=== PATIENT | male | born 1975 | race African-American/Black ===

== ENCOUNTER 2017-07-01 15:37 | Emergency (ER) | payer SELFPAY ==
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
--- NOTE | 2017-07-02 10:38 | CR ---
EXAM DATE: 07/01/17 PATIENT'S AGE: 41 Patient: AKASH BENITO Facility: [place], [place] Site . Site : [id number] Study: XRay Chest [id number]/[id number] 4:40:56 PM Ordering Physician: Soraya Montiel Final Report: INDICATION: Pain, shortness of breath for 2 days TECHNIQUE: Chest 2 views. COMPARISON: None FINDINGS: Cardiovascular and mediastinum: Heart size and vasculature are normal in caliber and appearance. Mediastinum is within normal limits. Lungs and pleural spaces: Lungs are clear. No sign of infiltrate or mass. No sign of pleural effusion. No pneumothorax. Bones and soft tissues: No significant findings. IMPRESSION: No sign of acute disease. Dictated by Christa Hammond MD @ Jul 01 2017 4:54PM (Electronic Signature) Report Signed by Proxy. ANITA
== END 2017-07-01 17:24 | disposition home or self-care (01) ==
LOC: MW.ED 15:37
DX: M62.838 Other muscle spasm (principal)
CPT/HCPCS: 71020; 71020-26; 93005; 99282; 99283-25

== ENCOUNTER 2019-01-16 14:58 | Emergency (ER) | payer BC, OTHER ==
--- NOTE | 2019-01-16 15:21 | EDM.PDOC ---
ED HPI GENERAL MEDICAL PROBLEM - General Chief Complaint: Skin Complaint Stated Complaint: NECK PAIN Time Seen by Provider: 01/16/19 15:19 Source of Information: Reports: Patient - History of Present Illness INITIAL COMMENTS - FREE TEXT/NARRATIVE: HISTORY AND PHYSICAL: History of present illness: [Patient presents with a couple of "bumps"in the back of his neck which indeed he does he has 2 small lesions consistent with ingrown hairs which are small subcentimeter lesions no surrounding redness or induration however lesions himself aren't inflamed I did produce a small amount of fluid from one which was more serous in nature I did culture this no fever nausea vomiting chills sweats He has had another lesion on his calfWhich had drained on its own and is in the stage of healing this is approximately 2 weeks old. No surrounding cellulitis ] Review of systems: As per history of present illness and below otherwise all systems reviewed and negative. Past medical history: As per history of present illness and as reviewed below otherwise noncontributory. Surgical history: As per history of present illness and as reviewed below otherwise noncontributory. Social history: No reported history of drug or alcohol abuse. Family history: As per history of present illness and as reviewed below otherwise noncontributory. Physical exam: HEENT: Atraumatic, normocephalic, pupils reactive, negative for conjunctival pallor or scleral icterus, mucous membranes moist, throat clear, neck supple, nontender, trachea midline. Lungs: Clear to auscultation, breath sounds equal bilaterally, chest nontender. Heart: S1S2, regular, negative for clicks, rubs, or JVD. Abdomen: Soft, nondistended, nontender. Negative for masses or hepatosplenomegaly. Negative for costovertebral tenderness. Pelvis: Stable nontender. Genitourinary: Deferred. Rectal: Deferred. Extremities: Atraumatic, negative for cords or calf pain. Neurovascular unremarkable. Neuro: Awake, alert, oriented. Cranial nerves II through XII unremarkable. Cerebellum unremarkable. Motor and sensory unremarkable throughout. Exam nonfocal. Diagnostics: [Wound culture ] Therapeutics: [Bactrim ] Impression: Folliculitis defintive disposition and diagnosis as appropriate pending reevaluation and review of above. Bump to Back of Neck Pain Score (Numeric/FACES): 10 - Related Data Allergies Allergy/AdvReac Type Severity Reaction Status Date / Time No Known Allergies Allergy Verified 01/16/19 15:07 Home Meds: Home Meds . [No Known Home Meds] 07/01/17 [History] Past Medical History - Past Health History Medical/Surgical History: Denies Medical/Surgical History Social & Family History - Family History Family Medical History: Noncontributory - Tobacco Use Smoking Status *Q: Never Smoker Second Hand Smoke Exposure: No - Caffeine Use Caffeine Use: Reports: Coffee, Energy Drinks, Soda - Recreational Drug Use Recreational Drug Use: No ED ROS GENERAL - Review of Systems Review Of Systems: See Below ED EXAM, SKIN/RASH Exam: See Below Course - Vital Signs Last Recorded V/S: Last Vital Signs Temp 97.4 F 01/16/19 15:08 Pulse 77 01/16/19 15:08 Resp 18 01/16/19 15:08 BP 131/98 H 01/16/19 15:08 Pulse Ox 98 01/16/19 15:08 Departure - Departure Time of Disposition: 15:21 Disposition: Home, Self-Care 01 Condition: Good Clinical Impression: Folliculitis - Discharge Information Referrals: PCP,None [Primary Care Provider] - Additional Instructions: The following information is given to patients seen in the emergency department who are being discharged to home. This information is to outline your options for follow-up care. We provide all patients seen in our emergency department with a follow-up referral. The need for follow-up, as well as the timing and circumstances, are variable depending upon the specifics of your emergency department visit. If you don't have a primary care physician on staff, we will provide you with a referral. We always advise you to contact your personal physician following an emergency department visit to inform them of the circumstance of the visit and for follow-up with them and/or the need for any referrals to a consulting specialist. The emergency department will also refer you to a specialist when appropriate. This referral assures that you have the opportunity for follow-up care with a specialist. All of these measure are taken in an effort to provide you with optimal care, which includes your follow-up. Under all circumstances we always encourage you to contact your private physician who remains a resource for coordinating your care. When calling for follow-up care, please make the office aware that this follow-up is from your recent emergency room visit. If for any reason you are refused follow-up, please contact the [facility] emergency department at and asked to speak to the emergency department charge nurse.
== END 2019-01-16 15:30 | disposition home or self-care (01) ==
LOC: MW.ED 14:58
DX: L73.9 Follicular disorder, unspecified (principal)
CPT/HCPCS: 87070; 99283

== ENCOUNTER 2021-07-11 12:46 | Emergency (ER) | payer BC, OTHER ==
[2021-07-11] MEDS ORDERED: Sodium Chloride 0.9% 2.5 ML Syringe FLUSH PRN (13:55)
[2021-07-11] MEDS ORDERED: Sodium Chloride 0.9% 10 ML Syringe FLUSH PRN (13:55)
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
[2021-07-11 14:15] LABS: BLOOD UREA NITROGEN,BUN 13 mg/dL (7.0-18.0); CARBON DIOXIDE,CO2 24.5 mmol/L (21.0-32.0); CHLORIDE,CL 103 mmol/L (98-107); GLUCOSE RANDOM 177 mg/dL (74-106); LIPASE 218 U/L (73-393); POTASSIUM,K 3.2 mmol/L (3.5-5.1); SODIUM,NA 141 mmol/L (136-148)
--- NOTE | 2021-07-11 14:32 | CR ---
Indication: Syncope, history of maldonado virus Comparison: Two-view chest July 01, 2017 Technique: Single AP view chest Findings: There is hyperinflation and chronic interstitial change. There is no focal consolidation, effusion, or pneumothorax. The cardiac silhouette is mildly prominent. The bony thorax is grossly intact. Impression: Hyperinflation and chronic interstitial changes without evidence of dense consolidation or obvious ground-glass opacity. Dictated by Edward Jimenez MD @ 07/11/2021 2:31:15 PM (Electronically Signed)
--- NOTE | 2021-07-11 14:59 | CT ---
Indication: Possible grand mal seizure Technique: Volumetric multidetector CT images of the head were obtained without the administration of low osmolar intravenous contrast. Comparison: None available Findings: There is no intra-axial or extra-axial fluid collection. There is no mass effect or midline shift. The ventricles and sulci are normal in size and position for age. The brain parenchyma is grossly preserved in attenuation and perez-white differentiation. The orbits and their contents are grossly within normal limits. The bony calvarium is grossly intact. The paranasal sinuses are clear. The mastoid air cells are well aerated. Impression: No acute intracranial abnormality. Please note that all CT scans at this facility use dose modulation, iterative reconstruction, and/or weight-based dosing when appropriate to reduce radiation dose to as low as reasonably achievable. Dictated by Edward Jimenez MD @ 07/11/2021 2:58:31 PM (Electronically Signed)
[2021-07-11 15:28] LABS: CORONAVIRUS COVID-19 NAA POSITIVE (NEGATIVE); INFLUENZA A NAA NEGATIVE (NEGATIVE); INFLUENZA B NAA NEGATIVE (NEGATIVE)
[2021-07-11] MEDS ORDERED: Sodium Chloride 0.9% 1,000 ML IV ONE (18:13)
== END 2021-07-11 19:35 | disposition home or self-care (01) ==
LOC: MW.ED 12:46
DX: U07.1 COVID-19 (principal); R56.9 Unspecified convulsions; Z79.899 Other long term (current) drug therapy
CPT/HCPCS: 0240U; 36415; 70450; 71045; 80053; 83690; 83735; 84484; 85025; 96365; 99285; J1953; J7030

== ENCOUNTER 2024-01-22 13:27 | Emergency (ER) | payer OTHER ==
[2024-01-22 14:27] LABS: APPEARANCE,URINE CLEAR; BILIRUBIN,URINE NEGATIVE (NEGATIVE); COLOR,URINE YELLOW; GLUCOSE,URINE >=1000 mg/dL (NEGATIVE); KETONES,URINE NEGATIVE (NEGATIVE); LEUKOCYTE ESTERASE,URINE NEGATIVE (NEGATIVE); NITRITE,URINE NEGATIVE (NEGATIVE); OCCULT BLOOD,URINE NEGATIVE (NEGATIVE); PH,URINE 5.5 (5.0-8.0); PROTEIN,URINE NEGATIVE (NEGATIVE); UROBILINOGEN,URINE 0.2 EU/dL (<2.0)
[2024-01-22 14:36] LABS: BACTERIA,URINE FEW (NEGATIVE); EPITHELIAL CELLS,URINE RARE (NONE-FEW); RBC,URINE 0-1 (0-2/HPF); WBC,URINE 0-1 (0-5/HPF)
[2024-01-22] MEDS: Sodium Chloride 0.9% 1,000 ML IV ONE (14:58)
[2024-01-22 15:00] LABS: BASOPHILS ABSOLUTE AUTO 0.01 K/uL (0.00-0.20); BASOPHILS PERCENT AUTO 0.2 % (0.0-1.0); EOSINOPHILS ABSOLUTE AUTO 0.03 K/uL (0.00-0.45); EOSINOPHILS PERCENT AUTO 0.5 % (0.0-6.0); HEMOGLOBIN 15.1 g/dL (14.0-18.0); IMMATURE GRAN ABSOLUTE AUTO 0.01 K/uL (0.00-0.05); IMMATURE GRAN PERCENT AUTO 0.2 % (0.0-0.4); LYMPHOCYTES ABSOLUTE AUTO 3.27 K/uL (1.00-4.80); LYMPHOCYTES PERCENT AUTO 58.8 % (24.0-44.0); MEAN CORPUSCULAR HEMOGLOBIN 32.2 pg (28.0-32.0); MEAN CORPUSCULAR HGB CONC 36.8 g/dL (32.0-36.0); MEAN CORPUSCULAR VOLUME 87.4 fL (83.0-99.0); MEAN PLATELET VOLUME 10.5 fL (9.4-12.4); MONOCYTES ABSOLUTE AUTO 0.38 K/uL (0.00-0.80); MONOCYTES PERCENT AUTO 6.8 % (0.0-8.0); NEUTROPHILS ABSOLUTE AUTO 1.86 K/uL (1.80-7.70); NEUTROPHILS PERCENT AUTO 33.5 % (41.0-71.0); PLATELET COUNT,PLT 208 K/uL (150-400); RED BLOOD CELL COUNT 4.69 M/uL (4.52-5.90); WHITE BLOOD CELL COUNT,WBC 5.56 K/uL (3.9-11.3)
[2024-01-22 16:12] LABS: BLOOD UREA NITROGEN,BUN 13 mg/dL (7.0-18.0); CALCIUM 9.5 mg/dL (8.5-10.1); CARBON DIOXIDE,CO2 20.3 mmol/L (21.0-32.0); CHLORIDE,CL 96 mmol/L (98-107); CREATININE 1.1 mg/dL (0.8-1.3); GLUCOSE RANDOM 456 mg/dL (74-106); POTASSIUM,K 4.1 mmol/L (3.5-5.1); SODIUM,NA 133 mmol/L (136-148)
[2024-01-22 16:23] LABS: ESTIMATED GFR 83 mL/min (>60)
[2024-01-22 17:10] LABS: HEMOGLOBIN A1C 12.3 %
== END 2024-01-22 16:59 | disposition home or self-care (01) ==
LOC: MW.ED 13:27
DX: E11.9 Type 2 diabetes mellitus without complications (principal)
CPT/HCPCS: 36415; 80048; 81001; 82947; 83036; 85025; 96360; 99283; J7030